=== PATIENT | female | born 1970 | race African-American/Black ===

== ENCOUNTER → 2024-06-08 07:33 | Outpatient (REF) | payer BC, SELFPAY | LOC: EMG 07:33 | PROVIDERS: ATTENDING PHYSICIAN Internal Medicine Rheumatology; FAMILY PHYSICIAN Family Medicine | DX: G62.9 Polyneuropathy, unspecified (principal); M35.01 Sjogren syndrome with keratoconjunctivitis; R20.0 Anesthesia of skin | CPT/HCPCS: 95886; 95911 ==

== ENCOUNTER 2025-02-24 08:15 | Emergency (ER) | payer BC, SELFPAY ==
[2025-02-24 08:18] VITALS: BP 130/69
[2025-02-24 08:32] VITALS: BMI 31.8
--- NOTE | 2025-02-24 08:40 | ED.GENMED ---
History of Present Illness
General
Chief Complaint: Weakness
Source: patient
Exam Limitations: none
Time Seen by Provider: 02/24/25 08:25
Nursing documentation reviewed up to this point in time: agreed with
History of Present Illness
History of Present Illness:
54 yo female with hx Sjogren's, anxiety/depression presents with two days of fatigue, weakness, body aches, intermittent palpitations and feeling SOB when walking. She flew to and from [place] and 5 days ago. She flew to and from [facility] 3 weeks
ago. Denies CP, abd pain, n/v/d/c, denies UTI symptoms. Denies fever/chills.
Past History
Past History
ED Past Medical History: Psychiatric (Depression) and Other (Sjogren's)
ED Past Surgical History: Orthopedic
Social History
Tobacco: Non-smoker
Alcohol: Occasional
Personal:
Living: with family
Employment: Employed
Review of Systems
Review of Systems
Allergies reviewed?: Yes
All Other Systems: ROS reviewed and negative except as documented in HPI and ROS
ABD/GI: Denies abdominal pain, nausea, vomiting or diarrhea
: Denies dysuria or frequency
Musculoskeletal: Denies joint pain, joint swelling or muscle pain
Skin: Reports no symptoms
Phy Exam
Physical Exam
Physical Exam:
GENERAL: No acute distress. A&Ox3.
CONSTITUTIONAL: Afebrile.
EYES: clear, conjunctivae normal
ENMT: moist mucus membranes, Pharynx nl
RESPIRATORY: Regular respirations, nonlabored, lungs clear.
CARDIOVASCULAR: Regular rate and rhythm, no murmurs, no rubs.
GI: Soft, nontender, normal BS
MUSCULOSKELETAL: Moves with ease. Well perfused.
SKIN: Warm, dry, normal
PSYCH: Normal mood and affect. Well kept, interactive and appropriate
NEUROLOGIC: Awake, alert and oriented. No focal neurological deficits normal
Course
Orders/Labs/Results
Orders:
Orders
02/24/25 08:38
Electrocardiogram (*1) Urgent
Reason for Study: Chest Pain
EKG- Treatment ONCE
02/24/25 08:52
COVID-19 Antigen Urgent
Source: Nasal Swab
Complete Blood Count/With Diff Urgent
Comprehensive Metabolic Panel Urgent
D-Dimer Urgent
Troponin I Urgent
02/24/25 10:12
CT Chest PE Study Urgent
Comment:
Reason For Exam: elevated dimer, SOB w exertion
Abnormal Lab Results
02/24/25
08:52
Plt Count 120 L 10^3/uL
(130-400)
MPV 11.9 H fL
(7.4-10.4)
Absolute Monos (auto) 0.7 H 10^3/uL
(0.1-0.6)
Monocytes % 11.0 H %
(1.7-9.3)
D-Dimer 3.08 H ug/mlFEU
(0.00-0.50)
Chloride 108 H mmol/L
(98-107)
AST 42 H U/L
(14-36)
Total Protein 9.1 H g/dl
(6.3-8.2)
02/24/25 08:52
02/24/25 08:52
Vital Signs
Initial and Last Documented VS:
Initial Vital Signs
Temp Pulse Resp BP Pulse Ox
98.0 F 79 16 130/69 98
02/24/25 08:18 02/24/25 08:18 02/24/25 08:18 02/24/25 08:18 02/24/25 08:18
Last Documented Vital Signs
Temp Pulse Resp BP Pulse Ox
98.0 F 65 21 109/68 100
02/24/25 08:18 02/24/25 10:30 02/24/25 10:30 02/24/25 10:00 02/24/25 10:00
MDM/Problems Addressed
Differential Diagnosis Includes:
dehydration, viral illness, PE, [place]
MDM/Problems Addressed:
54 yo female with hx Sjogren's, anxiety/depression presents with two days of fatigue, weakness, body aches, intermittent palpitations and feeling SOB when walking. She flew to and from [place] and 5 days ago. She flew to and from [facility] 3 weeks
ago. Denies CP, abd pain, n/v/d/c, denies UTI symptoms. Denies fever/chills.
EKG: Normal sinus rhythm, heart rate 63, ST elevation most likely due to early repolarization, patient states she has had this in the past
9:30 a.m.
CMP with no clinically significant abnormality
CBC normal
Troponin normal
Covid neg
10:15 a.m.
D dimer elevated at 3.08
11:[address] PE study radiology report read:
IMPRESSION:
1. No pulmonary embolism identified.
2. No acute pulmonary process identified.
3. Nodular opacities along the left major fissure which measure 3 mm and 4 mm in diameter. These are likely to have a benign etiology. If there are significant risk factors, consider follow-up scan in 12 months as below.
4. Hepatic fatty infiltration. Borderline splenomegaly.
Patient given copy of report as well as a copy of her EKG and labs
There is nofever, joint pain or swelling, no myalgias, no focal neuro symptoms, no skin rash, do not suspect bacterial/spirochete/protozoal infection.
Nothing in workup today to explain symptoms, other than possible mild Sjogren's flare. Patient appears well, stable for discharge.
*Pulse Oximetry
SaO2: 98
Oxygen Mode of Delivery: Room air
Patient hypoxic: no
*EKG
EKG Intrepretation Date: 02/24/25
Interpretation: abnormal
Heart Rate: 63
Rate: normal
Rhythm: sinus
[place]: normal axis
Interval: normal interval
Ischemia: ST elevation (mild, states she's been told this in the past. Probably due to early repolarization)
*Critical Care Note
Total Time (30-74mins, 75-104mins- exclusive of procedures): Not Applicable
ED Attending Note
-
Portions of this chart may have been created with voice recognition software.� Occasional wrong word or��sound alike� substitutions may have occurred due to the inherent limitations of voice recognition software.
Discharge Plan
Departure
Patient Disposition: Home (Routine Discharge)
Date of Disposition: 02/24/25
Time of Disposition: 11:28
Patient with high blood pressure during this ER visit?: No
Condition: Good
Discharge Problem:
Fatigue
Instructions: Sjogren's disease, Generalized Weakness (DC), Fatigue - ED (DC)
Prescriptions:
No Action
sertraline [Zoloft] 25 mg Tablet
25 mg PO DAILY
hydroxychloroquine 100 mg Tablet
100 mg PO DAILY
Referrals:
Ibeth Caldwell DO [Family Provider, Family Practice]
Activity Restrictions/Additional Instructions:
As we discussed, nothing worrisome in your workup here today.
A Sjogren's flare could have the symptoms of significant fatigue
Drink plenty of fluids, rest. See your doctor if not much better in one week or sooner if symptoms worsen
Interventions
Interventions:
*Risk Screen - Suicide Last Done: 02/24/25 08:18
*General Assessment Last Done: 02/24/25 08:32
*Neglect/Abuse Screening Last Done: 02/24/25 08:18
*ED- Fall Risk Assessment Last Done: 02/24/25 08:32
*ED COVID-19 Vaccine History Last Done: 02/24/25 08:32
*Nursing Disposition Last Done: 02/24/25 11:44
ED- Cardiac Assessment Last Done: 02/24/25 09:01
ED- Neurological Assessment Last Done: 02/24/25 08:33
ED- Pulmonary Assessment Last Done: 02/24/25 09:01
Discharge Date and Time
Discharge Date/Time: 02/24/25 11:45
Print Language: POLISH
[2025-02-24 08:58] VITALS: BP 107/61
[2025-02-24 09:00] VITALS: BP 107/61
[2025-02-24 09:16] LABS: COVID-19 Antigen Negative (Negative)
[2025-02-24 09:18] LABS: ALT (SGPT) 15 U/L (0-35); AST (SGOT) 42 U/L (14-36); Albumin 4.2 g/dl (3.5-5.0); Alkaline Phosphatase 70 U/L (38-126); Blood Urea Nitrogen 12 mg/dl (7-17); Calcium 9.3 mg/dl (8.4-10.2); Carbon Dioxide 24 mmol/L (22-30); Chloride 108 mmol/L (98-107); Estimated Creatinine Clearance 84 ml/min; Glucose 98 mg/dl (70-99); Potassium 4.0 mmol/L (3.5-5.1); Sodium 138 mmol/L (135-145); Total Protein 9.1 g/dl (6.3-8.2); eGFR > 60.00
[2025-02-24 09:38] LABS: Hematocrit 38.8 % (37.0-47.0); Hemoglobin 13.1 g/dL (12.0-16.0); Mean Corp Hgb Conc. 33.8 g/dL (33.0-37.0); Mean Corpuscular Volume 82.6 fL (81.0-99.0); Red Cell Dist. Width 13.2 % (11.5-14.5)
[2025-02-24 09:49] LABS: Troponin I < 0.012 ng/ml
[2025-02-24 10:00] VITALS: BP 109/68
[2025-02-24 10:04] LABS: D-Dimer 3.08 ug/mlFEU (0.00-0.50)
[2025-02-24 10:27] LABS: Nucleated Red Blood Cells % 0 %; Platelet Count 120 10^3/uL (130-400)
== END 2025-02-24 11:45 | disposition home or self-care (01) ==
LOC: EMR 08:15
PROVIDERS: Registered Nurse; EMERGENCY PHYSICIAN Student in an Organized Health Care Education/Training Program; FAMILY PHYSICIAN Family Medicine
DX: M35.00 Sjogren syndrome, unspecified (principal); R53.83 Other fatigue; Z11.52 Encounter for screening for COVID-19
CPT/HCPCS: 99284; 71275; 80053; 84484; 85025; 85379; 87811; 93005; Q9967